=== PATIENT | male | born 1960 | race Asian ===

== ENCOUNTER 2023-01-29 08:21 | Inpatient (IN) | payer MEDICAID ==
[2023-01-22 14:44] LABS: BASOPHILS % (AUTO) 0.9 % (0-1); EOSINOPHILS # (AUTO) 0.1 X10'3 (0-0.9); LYMPHOCYTES # (AUTO) 1.3 X10'3 (1.1-4.8); LYMPHOCYTES % (AUTO) 34.2 % (21-51); MEAN CORPUSCULAR HGB CONC 33.3 g/dL (33.0-36.5); MEAN CORPUSCULAR VOLUME 93.1 FL (78-98); MONOCYTES # (AUTO) 0.4 X10'3 (0-0.9); MONOCYTES % (AUTO) 11.3 % (2-12); NEUTROPHILS # (AUTO) 1.9 X10'3 (1.8-7.7); NEUTROPHILS % (AUTO) 50.6 % (42-75); PRE OP HEMATOCRIT 48.9 % (42.0-52.0); PRE OP HEMOGLOBIN 16.3 g/dL (14.0-17.9); PRE OP PLATELET COUNT 186 X10'3 (140-440); PRE OP WHITE BLOOD COUNT 3.8 10'3 (4.8-10.8); RED BLOOD COUNT 5.25 X10'6 (4.70-6.10)
[2023-01-22 15:04] LABS: ALBUMIN/GLOBULIN RATIO 1.2 (1.1-1.5); ALKALINE PHOSPHATASE 93 IU/L (46-116); BLOOD UREA NITROGEN 15 MG/DL (7-18); BUN/CREATININE RATIO 13.3 (10.0-20.0); CALCIUM 8.9 MG/DL (8.5-10.1); CHLORIDE 106 MMOL/L (99-107); CREATININE 1.13 MG/DL (0.60-1.10); PRE OP ALT 56 U/L (30-65); PRE OP ANION GAP 6 (8-16); PRE OP AST 35 U/L (10-37); PRE OP BILIRUB, TOTAL 0.9 MG/DL (0.0-1.0); PRE OP GLUCOSE 134 MG/DL (70-104); PRE OP POTASSIUM 3.8 MMOL/L (3.4-5.1); PRE OP SODIUM 139 MMOL/L (135-145); TOTAL CARBON DIOXIDE 27.1 MMOL/L (24-32); TOTAL PROTEIN 7.3 G/DL (6.4-8.2); eGFR 65 ML/MIN
[2023-01-29] VITALS (28 sets, daily range): BP systolic 116–136; BP diastolic 67–85; PULSE 69–99; RESP 12–18; TEMP 98.2–99.1; O2SAT 77–100
[~2023-01-29] VITALS: Ht 157.5 cm; Wt 72.8 kg
[~2023-01-29 08:21] MED LIST: ALLO100T PO; ASPI81TA52 PO; ATOR40TA PO; LISI20TA28 PO; cefazolin 2gm/D5W 100mL 100 ML IV ONE; famotidine 20mg tablet PO ONE; ringers solution, lacted 1,000 ML IV SCH; vancomycin 1,500 MG in NS 300ml IV soln IV ONE
[2023-01-29] MEDS ORDERED: cloNIDine hcl/PF 100mcg/ml inj ONE (12:50)
[2023-01-29] MEDS ORDERED: tetracaine 1% (10mg/ml) pres. free inj. ONE (12:50)
[2023-01-29] MEDS ORDERED: acetaminophen 1,000mg/100ml IV 100 ML IV ONE (12:55)
[2023-01-29] MEDS ORDERED: ringers solution, lacted 1,000 ML IV SCH (12:55)
[2023-01-29] MEDS ORDERED: hydrALAZINE 20mg/ml inj. IV PRN (12:55)
[2023-01-29] MEDS ORDERED: morphine 4 MG/ML inj SYRINge IV PRN (12:55)
[2023-01-29] MEDS ORDERED: ondansetron/PF 4mg/2ml inj IV PRN ×2 (12:55→16:35)
[2023-01-29] MEDS ORDERED: labetalol 20mg/4ml (5mg/ml) syringe IV PRN (12:55)
[2023-01-29] MEDS ORDERED: meperidine/PF 25mg/ml syringe IV PRN ×3 (12:55)
[2023-01-29] MEDS ORDERED: proCHLORperazine 10 MG/2 ml inj IV PRN (12:55)
[2023-01-29] MEDS ORDERED: ROPIVAcaine 0.2% (10 MG/5 ML) BOLUS INJECTION ADDCANAL PRN (12:55)
[2023-01-29] MEDS ORDERED: ketorolac tromethamine 15mg/ml inj. IV ONE (12:55)
[2023-01-29] MEDS ORDERED: ROPIVAcaine 0.2%/PF PUMP/bolus 545 ML ADDCANAL SCH (12:55)
[2023-01-29] MEDS ORDERED: morphine 2 MG/ML inj. syringe IV PRN (12:55)
[2023-01-29] MEDS ORDERED: midazolam 1 mg/ML 2ml injection ONE (13:03)
[2023-01-29] MEDS ORDERED: fentaNYL/PF 50MCG/1 ML 2ML syringe ONE (13:03)
[2023-01-29] MEDS ORDERED: epiNEPHrine 1 mg/ml inj ONE (13:06)
[2023-01-29] MEDS ORDERED: morphine 10mg/ml inj. ONE (13:06)
[2023-01-29] MEDS ORDERED: ROPIVAcaine 0.5% (5mg/ml) 30ml vial ONE ×2 (13:07→14:49)
[2023-01-29] MEDS ORDERED: vancomycin 1,000mg inj ONE (13:07)
[2023-01-29] MEDS ORDERED: BUPIVAcaine/dex-water/PF 7.5 mg/ml 2ml ampul ONE (13:41)
[2023-01-29] MEDS ORDERED: ePHEDrine 50MG/ML INJ. ONE (14:49)
[2023-01-29] MEDS ORDERED: dexamethasone sod phosphate 4mg/ml inj. ONE (14:49)
[2023-01-29] MEDS ORDERED: propofol inj 20 ML IV ONE ×3 (14:49)
[2023-01-29] MEDS ORDERED: diphenhydrAMINE 25mg capsule PO PRN ×2 (16:35)
[2023-01-29] MEDS ORDERED: oxyCODONE IR 5mg (immed. release) tablet PO PRN (16:35)
[2023-01-29] MEDS ORDERED: magnesium hydroxide 30ml (MOM) UD suspension PO PRN (16:35)
[2023-01-29] MEDS ORDERED: bisacodyl 10mg suppository rectal RC PRN (16:35)
[2023-01-29] MEDS ORDERED: HYDROmorphone inj. 0.5 MG/0.5 ML DISP.SYRIN IV PRN (16:35)
[2023-01-29] MEDS ORDERED: acetaminophen 325mg tablet PO PRN (16:35)
[2023-01-29] MEDS ORDERED: naloxone 0.4 mg/ml inj IV PRN (16:35)
[2023-01-29] MEDS ORDERED: HYDROmorphone 1 mg/ml syringe IV PRN (16:35)
[2023-01-29] MEDS ORDERED: tranexamic acid inj. 730 MG in normal saline 100ml IV soln 92.7 ML IV ONE (19:30)
[2023-01-29] MEDS ORDERED: vancomycin/NS 1 GM ADD-VANTAGE 250 ML IV SCH (20:00)
[2023-01-29] MEDS ORDERED: sennosides 8.6mg tablet PO SCH (21:00)
[2023-01-29] MEDS: oxyCODONE IR 5mg (immed. release) tablet PO PRN (22:01)
[2023-01-29] MEDS: gabapentin 300mg capsule PO SCH (22:01)
[2023-01-29] MEDS: acetaminophen 325mg tablet PO SCH (22:02)
[2023-01-29] MEDS: potassium Cl 20mEq in NS 1,000 ML IV SCH (22:03)
[2023-01-30] MEDS: potassium Cl 20mEq in NS 1,000 ML IV SCH ×2 (00:35→13:42)
[2023-01-30] MEDS: ceFAZolin/D5W- 1GM premix 50 ML IV SCH ×2 (01:35→08:10)
[2023-01-30 01:40] VITALS: BP 98/62; PULSE 78; RESP 14; TEMP 98.4; O2SAT 97
[2023-01-30] MEDS: acetaminophen 325mg tablet PO SCH ×3 (02:00→13:41)
[2023-01-30] MEDS: oxyCODONE IR 5mg (immed. release) tablet PO PRN ×3 (05:04→17:02)
[2023-01-30 06:00] VITALS: BP 102/62; PULSE 82; RESP 13; TEMP 97.7; O2SAT 97
[2023-01-30] MEDS ORDERED: allopurinol 100mg tablet PO SCH (08:00)
[2023-01-30] MEDS ORDERED: atorvastatin 20mg tablet PO SCH (08:00)
[2023-01-30] MEDS ORDERED: lisinopril 20mg tablet PO SCH (08:00)
[2023-01-30] MEDS ORDERED: enoxaparin 40mg/0.4ml syringe SQ SCH (08:00)
[2023-01-30] MEDS: gabapentin 300mg capsule PO SCH ×2 (08:09→13:41)
[2023-01-30 08:31] LABS: BASOPHILS % (AUTO) 0.1 % (0-1); EOSINOPHILS % (AUTO) 0 % (0-6); HEMATOCRIT 39.6 % (42.0-52.0); LYMPHOCYTES # (AUTO) 1.9 X10'3 (1.1-4.8); LYMPHOCYTES % (AUTO) 15.5 % (21-51); MEAN CORPUSCULAR HEMOGLOBIN 30.4 PG (27.0-31.0); MEAN CORPUSCULAR HGB CONC 32.8 g/dL (33.0-36.5); MEAN CORPUSCULAR VOLUME 92.7 FL (78-98); MONOCYTES # (AUTO) 1.4 X10'3 (0-0.9); MONOCYTES % (AUTO) 11.5 % (2-12); NEUTROPHILS % (AUTO) 72.9 % (42-75); PLATELET COUNT 192 X10'3 (140-440); RED BLOOD COUNT 4.27 X10'6 (4.70-6.10); RED CELL DISTRIBUTION WIDTH 13.8 % (11.5-14.5); WHITE BLOOD COUNT 12.4 X10'3 (4.5-11.0)
[2023-01-30 08:55] LABS: ANION GAP 9 (8-16); CHLORIDE 106 MMOL/L (99-107); POTASSIUM 4.1 MMOL/L (3.5-5.1); SODIUM 139 MMOL/L (135-145); TOTAL CARBON DIOXIDE 24.5 MMOL/L (24-32)
[2023-01-30 10:00] VITALS: BP 108/63; PULSE 82; RESP 18; TEMP 98.1; O2SAT 97
[2023-01-30] MEDS ORDERED: celeCOXIB 100mg capsule PO SCH (20:00)
[2023-01-31] MEDS ORDERED: acetaminophen 325mg tablet PO PRN (16:35)
== END 2023-01-30 17:35 | disposition home or self-care (01) | DRG 326 ==
LOC: PAS IN 10:24 → UNDOADMIN 10:24 → PAS IN 16:38 → ORTHO 4S 18:55
PROVIDERS: ADMIT Orthopaedic Surgery; ATTEND Orthopaedic Surgery
PROC: 0JH80WZ Insertion of Totally Implantable Vascular Access Device into Abdomen Subcutaneous Tissue and Fascia, Open Approach (ICD-10-PCS; 2023-01-29)
PROC: 3E0T3BZ Introduction of Anesthetic Agent into Peripheral Nerves and Plexi, Percutaneous Approach (ICD-10-PCS; 2023-01-29)
PROC: 3E0T33Z Introduction of Anti-inflammatory into Peripheral Nerves and Plexi, Percutaneous Approach (ICD-10-PCS; 2023-01-29)
PROC: 0SRC0JA Replacement of Right Knee Joint with Synthetic Substitute, Uncemented, Open Approach (ICD-10-PCS; principal; 2023-01-29 13:41)
DX: M17.11 Unilateral primary osteoarthritis, right knee (principal); E78.00 Pure hypercholesterolemia, unspecified; M10.9 Gout, unspecified; I10 Essential (primary) hypertension; Z86.73 Personal history of transient ischemic attack (TIA), and cerebral infarction without residual deficits; Z87.891 Personal history of nicotine dependence; Z86.718 Personal history of other venous thrombosis and embolism
CPT/HCPCS: 36415; 73560; 80051; 80053; 82948; 85025; 87081; 97110; 97116; 97161; 97530; A4215; A6253; A6258; A6449; A7000; C1758; C1776; G0378; J0171; J0690; J0735; J1100; J1170; J1650; J1885; J2250; J2274; J2405; J2704; J2795; J3010; J3370; J3480; J3490; J7120